=== PATIENT | male | born 1955 | race Caucasian/White ===

== ENCOUNTER 2019-03-19 19:49 | Emergency (ER) | payer OTHER ==
[2019-03-19 20:02] VITALS: RESP 14; TEMP 97.5; O2SAT 96
[2019-03-19] MEDS ORDERED: LIDOCAINE HCL 1% MDV 50 ML SOL SC ONE (20:28)
[2019-03-19] MEDS ORDERED: LIDOCAINE HCL 1% MPF 30 SOL ONE (20:29)
[2019-03-19] MEDS ORDERED: TDAP VACCINE 0.5 ML SUS IM ONE ×2 (21:08→21:15)
[2019-03-19] MEDS ORDERED: BACITRACIN 500 U/GM OIN TOP ONE ×2 (21:17→21:29)
[2019-03-19 21:53] VITALS: BP 165/82; PULSE 76
== END 2019-03-19 21:44 | disposition home or self-care (01) | DRG 605 ==
LOC: ED 19:49
DX: S01.01XA Laceration without foreign body of scalp, initial encounter (principal); W18.2XXA Fall in (into) shower or empty bathtub, initial encounter; S09.90XA Unspecified injury of head, initial encounter
CPT/HCPCS: 12002; 90471; 90715; 99284; A9270-GY; J2001